=== PATIENT | female | born 1965 | race Caucasian/White ===

== ENCOUNTER → 2019-04-05 06:46 | Day surgery (SDC) | payer MEDICARE, MEDICAID ==
[~2019-04-05 06:46] MED LIST: Clindamycin 600 MG/D5W BAG(*) 600 MG/50 ML BAG IV ONE; Flumazenil* 0.1 MG/ML 5 ML MDV ONE; Heparin 2 UNITS/ML IVPREMIX* 1,000 ML IV ONE; Iodixanol 320 (CONTRAST) 100 ML SDV ONE; Lidocaine 1% INJ* 10 MG/ML 30 ML SDV ONE; Midazolam* 1 MG/ML 5 ML VIAL (5 MG) ONE; Naloxone* 0.4 MG/ML 1 ML VIAL ONE; fentaNYL* 50 MCG/ML 2 ML VIAL (100 MCG VIAL) ONE
--- NOTE | 2019-04-05 10:30 | OP ---
Operative Report - Blank - Operative Report Date of Operation: 04/05/19 Note: Right Arm BC AVF Angiogram Procedure Note: Performed by: Dr. Min Kidd, [facility] Nephrology Procedure date: 04/05/2019 Percutaneous AVF Fistulogram and radiology supervision & interpretation Percutaneous balloon angioplasty of AVF stenosis with radiology supervision and interpretation by me Accessory Vein Ligation. Procedure Note: Consent was obtained, in chart. Patient understands risks, benefits, alternatives and wants to proceed. Following strict hand hygiene and standard sterile precautions, a full sterile attire for myself and all personnel involved in the procedure, including a gown, cap, face mask with an eye shield, and double sterile gloves. The procedure started with 2 ID time out after marking the AVF. Patient was put in supine position. Right UE and Chest were prepped with 2% Chlorhexidine, and the surgical field was surrounded by sterile surgical towels. A sterile full body drape was placed to cover the patient from head to toe. Rt AVF was accessed by a 21-G micropuncture needle, then a 0.018 micro wire was threaded through the 21-G needle towards the outflow, and the 21-G needle was pulled out, leaving the micro wire in, then a 4-Fr sheath and inner stylet were passed over the micro wire into the vein. Both, the micro wire and the inner stylet were removed and the 4-Fr sheath was kept in place. Confirmed using Fluoro. Then, a 0.035 inch floppy tip Hydrophilic wire, was passed through the 4-Fr sheath into the central circulation, confirmed by Fluoro in the IVC. The 4-Fr sheath was exchanged for 6-Fr sheath and dilator, and the dilator was removed. Contrast based images were obtained in different projections from the AV anastomosis to the Rt Atrium and including cine loop and showed: 4-Fr Kumpe Diagnostic Catheter was used to obtain AVF Angiogram: Rt UE AVF Brachio-Cephalic AVF: Outflow through both Rt Cephalic V & Rt Basilic V, almost 50-50% Accessory vein connecting the AVF to Basilic V. with significant outflow through the Basilic V. Body of the AVF: Multiple luminal irregularities and few lesions of 50-60% stenosis throughout the outflow tract. I dominant lesion in body of AVF with 60- 70% stenosis at the cannulation zone. Central circulation: Moderate lesion 50-60% in Cephaic arch and No central Stenosis Outflow: Both Cephalic and Basilic Balloon angioplasty was performed for the above mentioned lesion in AVF, using 6x40 mm, then 7x40 mm then 8x40 mm [place] Balloons. Balloons were inflated slowly to Nominal Pressure then to 14 ATMs for 30-60 Sec in overlapping fashion, from the tip of the sheath to the central circulation with particular attention to the above mentioned lesions. Excellent results followed with <30% residual, but still there was a significant flow though he accessory vein to the Basilic V. Accessory Vein was ligated using 2-0 Vicryl suture that will be left for 24 hrs. F/U Angiogram after Accessory Vein Ligation showed excellent lawton flow through the Cephalic which became the dominant outflow. No flow through the accessory vein visible on Angiogram. Cannulation site was repaired using 3-0 Vicryl in a Z-stitch fashion and the 6-Fr sheath was removed and the stitch tightened. Direct Arteriogram of the Brachial Radial Artery wasn't done as access has good inflow. Procedure was considered Complete. Complications: None Estimated Bleeding: < 5cc *Radiation safety: 1)Fluoro Time: 13.8 Minutes 2)Radiation Exposure: 190 mGy *ABx: Clindamycin 600 mg IVPB pre Op. *Medications: 1)IV Contrast: 60 cc Vesipaue 2)Fentanyl: 75 Mcg 3)Versed: 0.75 mg *Post Op Meds: None
[2019-04-05 11:07] VITALS: BP 167/73
== END | disposition home or self-care (01) ==
LOC: CHICATH 06:46
PROVIDERS: ATTEND Internal Medicine Nephrology
DX: T82.858A Stenosis of other vascular prosthetic devices, implants and grafts, initial encounter (principal); N18.6 End stage renal disease; Z99.2 Dependence on renal dialysis; G47.33 Obstructive sleep apnea (adult) (pediatric); E83.39 Other disorders of phosphorus metabolism
CPT/HCPCS: 36901; 36902; 36907; 99156; 99157; C1725; C1769; C1887; J1644; J2250; J2310; J3010

== ENCOUNTER → 2019-06-20 | Day surgery (SDC) | payer MEDICARE, MEDICAID ==
[~2019-06-20] MED LIST changes: -Flumazenil* 0.1 MG/ML 5 ML MDV ONE; +Heparin 2 UNITS/ML 1000 mls 1,000 ML IV ONE; -Heparin 2 UNITS/ML IVPREMIX* 1,000 ML IV ONE; -Lidocaine 1% INJ* 10 MG/ML 30 ML SDV ONE; +Lidocaine 1% VIAL 10 MG/ML VIAL ONE; +Midazolam 5 mg/5 ml VIAL 1 mg/ml 5 ml VIAL (5 mg) ONE; -Midazolam* 1 MG/ML 5 ML VIAL (5 MG) ONE; -Naloxone* 0.4 MG/ML 1 ML VIAL ONE; +fentaNYL 100 mcg/2 ml 50 MCG/ML VIAL ONE; -fentaNYL* 50 MCG/ML 2 ML VIAL (100 MCG VIAL) ONE
[2019-06-20 14:20] VITALS: BP 106/59
== END | disposition home or self-care (01) ==
LOC: CHICATH 09:04
PROVIDERS: ATTEND Internal Medicine Nephrology
DX: N18.6 End stage renal disease (principal)